=== PATIENT | male | born 1935 | race Caucasian/White ===

== ENCOUNTER → 2019-07-27 | Outpatient (CLI) | payer MEDICARE, BC ==
[~2019-07-27] MED LIST: iohexol 350MG/ML 100ml bottle IV ONE
== END | disposition home or self-care (01) ==
LOC: RAD 09:41
PROVIDERS: ATTEND Family Medicine
DX: K59.00 Constipation, unspecified (principal); I51.7 Cardiomegaly; R31.9 Hematuria, unspecified; R39.198 Other difficulties with micturition; Z87.891 Personal history of nicotine dependence
CPT/HCPCS: 74178; 76700; Q9967

== ENCOUNTER 2020-09-24 13:00 | Outpatient (CLI) | payer MEDICARE, BC ==
[~2020-09-24 13:00] MED LIST changes: +barium sulfate 450ml oral suspension ONE; -iohexol 350MG/ML 100ml bottle IV ONE
== END 2020-09-24 23:59 | disposition home or self-care (01) ==
LOC: RAD 13:00
DX: R13.12 Dysphagia, oropharyngeal phase (principal); G20 Parkinson's disease; R49.0 Dysphonia
CPT/HCPCS: 74230; J1644

== ENCOUNTER 2022-09-06 10:13 | Emergency (ER) | payer MEDICARE, BC ==
[~2022-09-06] VITALS: Ht 177.8 cm; Wt 89.8 kg
[2022-09-06 10:35] LABS: BASOPHILS % (AUTO) 0.6 % (0-1); EOSINOPHILS # (AUTO) 0.1 X10'3 (0-0.9); EOSINOPHILS % (AUTO) 0.9 % (0-6); HEMATOCRIT 36.1 % (42.0-52.0); HEMOGLOBIN 11.9 g/dl (14.0-17.9); LYMPHOCYTES # (AUTO) 1.3 X10'3 (1.1-4.8); LYMPHOCYTES % (AUTO) 16.7 % (21-51); MEAN CORPUSCULAR HEMOGLOBIN 29.9 PG (27.0-31.0); MEAN CORPUSCULAR VOLUME 90.6 FL (78-98); MONOCYTES # (AUTO) 0.7 X10'3 (0-0.9); MONOCYTES % (AUTO) 9.2 % (2-12); NEUTROPHILS # (AUTO) 5.7 X10'3 (1.8-7.7); NEUTROPHILS % (AUTO) 72.6 % (42-75); PLATELET COUNT 264 X10'3 (140-440); RED BLOOD COUNT 3.99 X10'6 (4.70-6.10); RED CELL DISTRIBUTION WIDTH 15.7 % (11.5-14.5); WHITE BLOOD COUNT 7.9 X10'3 (4.5-11.0)
[2022-09-06 10:52] LABS: ALANINE AMINOTRANSFERASE 36 U/L (12-78); ALBUMIN 3.1 G/DL (3.4-5.0); ALBUMIN/GLOBULIN RATIO 0.6 (1.1-1.5); ALKALINE PHOSPHATASE 143 IU/L (46-116); ANION GAP 11 (8-16); ASPARTATE AMINO TRANSFERASE 17 U/L (10-37); BILIRUBIN,TOTAL 0.6 MG/DL (0.1-1.0); BLOOD UREA NITROGEN 42 MG/DL (7-18); BUN/CREATININE RATIO 24.1 (5.4-32.0); CALCIUM 9.5 MG/DL (8.5-10.1); CHLORIDE 101 MMOL/L (99-107); CREATININE 1.74 MG/DL (0.60-1.10); GLUCOSE 166 MG/DL (70-104); POTASSIUM 5.1 MMOL/L (3.5-5.1); SODIUM 136 MMOL/L (135-145); TOTAL CARBON DIOXIDE 24.4 MMOL/L (24-32); eGFR 37 ML/MIN
[2022-09-06 10:59] LABS: MAGNESIUM 2.1 MG/DL (1.5-2.4)
--- NOTE | 2022-09-06 11:16 | NUR ---
Pt back from CT.
--- NOTE | 2022-09-06 11:33 | NUR ---
I have reviewed and agree with all interventions, assessments performed and documented by [facility].
[2022-09-06 11:35] LABS: APTT 43 SECONDS (22-32)
--- NOTE | 2022-09-06 11:50 | NUR ---
Dr. Hawkins has reviewed the imaging studies and trauma alert has been called off.
[2022-09-06 11:58] VITALS: BP 111/82
== END 2022-09-06 12:21 | disposition home or self-care (01) ==
LOC: ER 10:13
DX: I48.20 Chronic atrial fibrillation, unspecified (principal); E11.9 Type 2 diabetes mellitus without complications; Z76.0 Encounter for issue of repeat prescription; Z79.899 Other long term (current) drug therapy
CPT/HCPCS: 36415; 70450; 71045; 72125; 80053; 83735; 83880; 84484; 85025; 85610; 85730; 93005; 99285